=== PATIENT | female | born 1970 | race Caucasian/White ===

== ENCOUNTER 2019-11-17 19:39 | Emergency (ER) | payer MEDICAID ==
[~2019-11-17] VITALS: Ht 154.9 cm; Wt 86.0 kg
[2019-11-17] MEDS ORDERED: ALBUTEROL (0.083%) 2.5MG/3ML NEB HHN STA (20:07)
[2019-11-17] MEDS ORDERED: IPRATROPIUM BROMIDE (0.02%) 0.5MG/2.5ML NEB HHN STA (20:07)
[2019-11-17] MEDS ORDERED: PREDNISONE 20MG TABLET PO STA (20:07)
[2019-11-17] MEDS ORDERED: MAGNESIUM/ALUMINUM HYDROXIDE/SIMETHICONE 30ML UDC PO ONE (20:30)
[2019-11-17] MEDS ORDERED: VISCOUS LIDOCAINE 2% 15 ML UDC PO ONE (20:30)
[2019-11-17 21:37] LABS: CHLORIDE 105 mEq/L (98-107)
[2019-11-18] MEDS ORDERED: IOHEXOL-300 100 ML BOTTLE ONE (01:47)
[2019-11-18 02:09] VITALS: BP 127/77
== END 2019-11-18 02:10 | disposition home or self-care (01) ==
LOC: ER 19:39
DX: R13.10 Dysphagia, unspecified (principal); E11.65 Type 2 diabetes mellitus with hyperglycemia; Z86.19 Personal history of other infectious and parasitic diseases
CPT/HCPCS: 36415; 70491; 80048; 83880; 84484; 93005; 99285; Q9967